=== PATIENT | male | born 1975 | race Caucasian/White ===

== ENCOUNTER 2023-07-01 08:22 | Outpatient (AMB) | payer BC, SELFPAY ==
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
[2023-07-01 08:47] VITALS: BP 130/84; PULSE 68; O2SAT 99; BMI 30.6
== END 2023-07-01 10:02 | disposition home or self-care (01) ==
PROVIDERS: PCP Internal Medicine; Visit Provider Nurse Practitioner Family
DX: G43.009 Migraine without aura, not intractable, without status migrainosus (principal); R06.83 Snoring; R53.83 Other fatigue; G47.9 Sleep disorder, unspecified; G47.26 Circadian rhythm sleep disorder, shift work type
CPT/HCPCS: 99204

== ENCOUNTER → 2023-07-01 08:22 | Outpatient (BNVA) | payer BC, SELFPAY | PROVIDERS: PCP Internal Medicine; Visit Provider Nurse Practitioner Family ==

== ENCOUNTER 2024-01-26 08:17 | Outpatient (AMB) | payer BC, SELFPAY ==
--- OUTSIDE RECORDS SUMMARY | 2024-01-26 08:23 | XMS_ITS | Continuity of Care Document ---
Author Organization [facility] [place] Address [address] [place] [address]- Care Team Providers Care Coater Name Role Phone Destiny LEAD GENERATION MARKETING MANAGERAlcides Primary Care Physician Encounter [facility] Date(s): 12/06/23 - 01/05/24 [facility] [place] [address], [place] [address] Encounter Type: Triage Allergies, Adverse Reactions, Alerts No Known Medication Allergies Immunizations Given and Recorded Vaccine Date Status Refusal Reason influenza virus vaccine, inactivated 11/19/22 Ashu rded influenza virus vaccine, inactivated 11/19/21 Ashu rded influenza virus vaccine, inactivated 10/31/20 Ashu rded influenza virus vaccine, inactivated 10/12/19 Ashu rded influenza virus vaccine, inactivated 11/09/18 Ashu rded influenza virus vaccine, inactivated 11/11/17 Ashu rded influenza virus vaccine, inactivated 12/07/16 Ashu rded influenza virus vaccine, inactivated 12/17/15 Ashu rded influenza virus vaccine, inactivated 01/05/05 Ashu rded influenza virus vaccine, inactivated 12/28/02 Ashu rded influenza virus vaccine, inactivated 11/28/01 Ashu rded influenza virus vaccine, inactivated 01/06/01 Ashu rded influenza virus vaccine, inactivated 01/22/00 Ashu rded influenza virus vaccine, inactivated 11/01/97 Ashu rded SARS-CoV-2 (COVID-19) mRNA-1273 vaccine 04/13/20 R ecorded SARS-CoV-2 (COVID-19) mRNA-1273 vaccine 03/15/20 R ecorded tetanus-diphtheria toxoids (Td) 01/02/18 Recorded tetanus-diphtheria toxoids (Td) 11/01/97 Recorded hepatitis B adult vaccine 11/22/07 Recorded hepatitis B adult vaccine 06/26/07 Recorded hepatitis B adult vaccine 05/26/07 Recorded tetanus/diphtheria/pertussis, acel(Tdap) 05/26/07 Recorded Hepatitis A Adult Vaccine 07/18/98 Recorded Hepatitis A Adult Vaccine 11/08/97 Recorded Measles/Mumps/Rubella Virus Vaccine 12/20/78 Recor ded Medications allopurinol 300 mg oral tablet 1 tablet = 300 mg, By Mouth, Daily, # 30 tablet, 0 Refills, Maintenance, 03/12/15 4:01:13 PM EST, Tablet Start Date: 03/12/15 Status: Ordered Quantity: 30.0 Unit: tablet Repeat number: 1 amLODIPine 5 mg oral tablet 1 tablet = 5 mg, By Mouth, Daily, TAKE 1 TABLET BY MOUTH EVERY DAY, # 90 tablet, 1 Refills, Maintenance, 10/27/23 4:39:00 PM EDT, Tablet, [facility]/pharmacy #[id number], Partial fill upon patient request if the prescription is for a schedule II opioid drug., 163, cm, 07/14/23 11:21:00 EDT, Height, 76.7, kg, 09/10/22 8:00:00 EDT, Dry Weight Start Date: 10/27/23 Stop Date: 03/25/24 Status: Ordered Quantity: 90.0 Unit: tablet Repeat number: 2 azelastine-fluticasone 137 mcg-50 mcg/inh nasal spray USE 1 PUFF BY NASAL ROUTE 2 TIMES DAILY NEEDED (NASAL STUFFINESS). Start Date: 05/03/23 Status: Ordered Repeat number: 1 Golytely - oral powder for reconstitution See Instructions, Per instructions from GI., # 4,000 mL, 0 Refills, Maintenance, 09/09/23 9:34:00 AM EDT, [facility]/pharmacy #[id number], Partial fill upon patient request if the prescription is for a schedule II opioid drug., Per instructions from GI., 163, cm, 09/09/23 8:57:00 EDT, Height, 76.7, kg, 09/10/22 8:00:00 EDT, Dry Weight Start Date: 09/09/23 Status: Ordered Quantity: 4000.0 Unit: mL Repeat number: 1 Indication: Encounter for screening for malignant neoplasm of colon meloxicam 15 mg oral tablet TAKE 1 TABLET BY MOUTH TWICE A DAY Start Date: 05/03/23 Status: Ordered Repeat number: 1 omeprazole 20 mg oral enteric coated capsule 1 capsule = 20 mg, By Mouth, Daily, 30 min before a meal, # 90 capsule, 1 Refills, Maintenance, 10/30/23 2:40:00 PM EDT, [id number], Partial fill upon patient request if the prescription is for a schedule II opioid drug., 163, cm, 09/09/23 8:57:00 EDT, Height, 76.7, kg, 09/10/22 8:00:00 EDT,Dry Weight Start Date: 10/30/23 Stop Date: 04/27/24 Status: Ordered Quantity: 90.0 Unit: capsule Repeat number: 2 Indication: Gastro-esophageal reflux disease without esophagitis semaglutide 0.5 mg/0.5 mL (0.5 mg dose) subcutaneous solution = 0.5 mg, Subcutaneous Injection, Every week, for 4 week(s), in the abdomen, thigh, or upper arm, #2 mL, 1 Refills, Acute 01/31/24 10:58:00 AM EST, 12/06/23 10:58:00 AM EDT, Solution, [id number], Partial fill upon patient request if the prescription is for a schedule II opioid drug., 160, cm, 11/04/23 11:40:00 EDT, Height, 76.7, kg, 09/10/22 8:00:00 EDT, Dry Weight Start Date: 12/06/23 Stop Date: 01/31/24 Status: Ordered Quantity: 2.0 Unit: mL Repeat number: 2 sertraline 50 mg oral tablet TAKE 1/2 TABLET BY MOUTH EVERY DAY FOR 1 WEEK, THEN TAKE 1 TABLET DAILY THEREAFTER. Start Date: 05/03/23 Status: Ordered Repeat number: 1 Problem List Condition Confirmation Course Effective Dates Status Health St atus Informant Obese class I Confirmed Active Social History Social History Type Response Smoking Status Never (less than 100 in lifetime); Interested in cessation: No; Patient wants NRT during admission No;Never; Exposure to Secondhand Smoke: No; Previous treatment: None; Tobacco user in household: No entered on: 05/03/23 Sex Sex Representation Male (finding) Patient Care team information Care Team Personnel Name: Alcides Dixon NP Position: [facility] PCO Associate Professional Member Role: PCP Address: [address] [place] [address] [place] [address]- Telecom: Care Team Related Persons Name: YOLANDA THOMAS Insurance Providers Guarantor name: YEISON AMARISPADILLA [facility] Plan Information #: 1 Payer: [employer] Member Number: NA Policy Number: NA Group Number: NA
--- OUTSIDE RECORDS SUMMARY | 2024-01-26 08:23 | XMS_ITS | Continuity of Care Document ---
Author Name [facility] Organization [facility] Care Team Providers Care Gas Inspector Name Role Phone [facility] Unavailable Unavailable Problems Combined list of problems from Department of Defense and Veterans Affairs facilities. It does not include entries that were removed or entered in error. Problem Status Onset Date Problem Type Date of Resolution Comments Source assess patient condition work-related occupational disease Inactive Condition [facility] primary insomnia Active Condition [facility] dermatitis Active Condition [facility] bursitis prepatellar Active Condition [facility] Diagnosis: ICD-10-CM Z46.0 Encounter for fit/adjst of spectacles and contact lenses Active Diagnosis [facility] Diagnosis: ICD-10-CM Z01.00 Encounter for exam of eyes and vision w/o abnormal findings Active Diagnosis [facility] Immunizations Combined list of available immunizations from the Department of Defense and Veterans Affairs facilities. Immunization Series Date Given Administered By Site Reaction Lot Number CVX Code Drug Overseer Kosher Kitchen Status Comments Source influenza, seasonal, injectable 2021 [id number] Seqirus complet ed influenza , seasonal, injectabl e 11/19/21 Given Ambulat ory Pharmac y influenza, seasonal, injectable 2020 [id number] Seqirus complet ed influenza , seasonal, injectabl e 10/31/20 Given Ambulat ory Pharmac y COVID Vaccine Moderna 2020 [id number] complet ed COVID Vaccine Moderna 04/13/20 Given Ambulat ory Pharmac y COVID Vaccine Moderna 2020 [id number] complet ed COVID Vaccine Moderna 03/15/20 Given Ambulat ory Pharmac y influenza, seasonal, injectable 2019 [id number] complet ed influenza , seasonal, injectabl e 10/12/19 Given Ambulat ory Pharmac y influenza, seasonal, injectable 2018 [id number] 141 sanofi pasteur complet ed influenza , seasonal, injectabl e 11/09/18 Given Ambulat ory Pharmac y Td (adult) 2017 [id number] 138 complet ed Td (adult) 01/02/18 Given Ambulat ory Pharmac y influenza, seasonal, injectable-pf 2017 [id number] 140 Seqirus complet ed influenza , seasonal, injectabl e-pf 11/11/17 Given Ambulat ory Pharmac y influenza, seasonal, injectable-pf 2016 [id number] Seqirus complet ed influenza , seasonal, injectabl e-pf 12/07/16 Given Ambulat ory Pharmac y influenza, seasonal, injectable 2015 [id number] 141 GlaxoSmithKli ne complet ed influenza , seasonal, injectabl e 12/17/15 Given Ambulat ory Pharmac y influenza, seasonal, injectable-pf 2014 [id number] CSL Behring complet ed influenza , seasonal, injectabl e-pf 11/10/14 Given Ambulat ory Pharmac y hepatitis B adult vaccine 2014 [id number] GlaxoSmithKli ne complet ed hepatitis B adult vaccine 05/19/14 Given Ambulat ory Pharmac y influenza, seasonal, injectable-pf 2013 [id number] CSL Behring complet ed influenza , seasonal, injectabl e-pf 11/09/13 Given Ambulat ory Pharmac y hepatitis B adult vaccine 2013 [id number] Merck & Company Inc complet ed hepatitis B adult vaccine 11/09/13 Given Ambulat ory Pharmac y hepatitis B adult vaccine 2013 [id number] Merck & Company Inc complet ed hepatitis B adult vaccine 09/15/13 Given Ambulat ory Pharmac y influenza, seasonal, injectable-pf 2012 [id number] 140 Novartis Pharmaceutica complet ed influenza , seasonal, injectabl e-pf 11/29/12 Given Ambulat ory Pharmac y influenza, seasonal, injectable-pf 2011 [id number] 140 CSL Behring complet ed influenza , seasonal, injectabl e-pf 11/21/11 Given Ambulat ory Pharmac y influenza virus vaccine, live 2010 [id number] 111 AeroDynEnergy Inc comple t ed influenza virus vaccine, live 12/13/10 Given Ambulat ory Pharmac y influenza virus vaccine, live 2009 [id number] 111 [employer] comple t ed influenza virus vaccine, live 12/13/09 Given Ambulat ory Pharmac y Novel influenza-H1N 1-09, injectable 2009 [id number] 127 Novartis Pharmaceutica ls complet ed Novel influenza -R0T2-53, injectabl e 02/15/09 Given Ambulat ory Pharmac y influenza virus vaccine, live 2008 [id number] 111 [employer]yn[employer] Inc comple t ed influenza virus vaccine, live 11/10/08 Given Ambulat ory Pharmac y tetanus, diphtheria, acellular pertu is 2007 [id number] 115 sanofi pasteur complet ed tetanus, diphtheri a, acellular pertussis 12/10/07 Given Ambulat ory Pharmac y influenza virus vaccine,split 2007 [id number] 15 GlaxoSmithKli ne complet ed influenza virus vaccine,s plit 12/10/07 Given Ambulat ory Pharmac y influenza virus vaccine,split 2006 [id number] 15 GlaxoSmithKli ne complet ed influenza virus vaccine,s plit 12/10/06 Given Ambulat ory Pharmac y influenza virus vaccine,split 2006 [id number] 15 Unknown complet ed influenza virus vaccine,s plit 04/10/06 Given Ambulat ory Pharmac y influenza virus vaccine,split 2004 [id number] 15 sanofi pasteur complet ed influenza virus vaccine,s plit 01/05/05 Given Ambulat ory Pharmac y tuberculin purified protein derivative 2003 [id number] 96 Kleberg Adonay complet ed tuberculi n purified protein derivativ e 02/27/03 Given Ambulat ory Pharmac y tuberculin purified protein derivative 2003 [id number] 96 Kleberg Adonay complet ed tuberculi n purified protein derivativ e 02/13/03 Given Ambulat ory Pharmac y influenza virus vaccine, whole virus 2002 [id number] 16 Novartis Pharmaceutica ls complet ed influenza virus vaccine, whole virus 12/28/02 Given Ambulat ory Pharmac y typhoid vaccine, parenteral 2002 [id number] sanofi pasteur complet ed typhoid vaccine, parentera l 07/10/02 Given Ambulat ory Pharmac y tuberculin purified protein derivative 2002 [id number] 96 sanofi pasteur complet ed tuberculi n purified protein derivativ e 02/14/02 Given Ambulat ory Pharmac y influenza virus vaccine, whole virus 2001 [id number] 16 sanofi pasteur complet ed influenza virus vaccine, whole virus 11/28/01 Given Ambulat ory Pharmac y influenza virus vaccine, whole virus 2000 [id number] 16 [facility] complet ed influenza virus vaccine, whole virus 01/06/01 Given Ambulat ory Pharmac y tuberculin purified protein derivative 2000 [id number] 96 sanofi pasteur complet ed tuberculi n purified protein derivativ e 01/06/01 Given Ambulat ory Pharmac y anthrax vaccine 2000 [id number] 24 [employer] complet ed anthrax vaccine 07/01/00 Given Ambulat ory Pharmac y anthrax vaccine 2000 [id number] 24 [employer] complet ed anthrax vaccine 06/17/00 Given Ambulat ory Pharmac y anthrax vaccine 2000 24 [employer] complet ed anthrax vaccine 06/03/00 Given Ambulat ory Pharmac y typhoid vaccine, parenteral 2000 [id number] 41 [employer] complet ed typhoid vaccine, parentera l 05/26/00 Given Ambulat ory Pharmac y tuberculin purified protein derivative 2000 [id number] 96 [employer] complet ed tuberculi n purified protein derivativ e 05/24/00 Given Ambulat ory Pharmac y tuberculin purified protein derivative 2000 [id number] 96 [employer] complet ed tuberculi n purified protein derivativ e 05/17/00 Given Ambulat ory Pharmac y influenza virus vaccine, whole virus 1999 [id number] 16 [facility] complet ed influenza virus vaccine, whole virus 01/22/00 Given Ambulat ory Pharmac y influenza virus vaccine, whole virus 1998 16 complet ed influenza virus vaccine, whole virus 12/25/98 Given Ambulat ory Pharmac y typhoid vaccine, parenteral 1998 [id number] 41 [employer] complet ed typhoid vaccine, parentera l 07/18/98 Given Ambulat ory Pharmac y hepatitis A adult vaccine 1998 [id number] 52 Merck & Company Inc complet ed hepatitis A adult vaccine 07/18/98 Given Ambulat ory Pharmac y yellow fever vaccine 1998 [id number] 37 [employer] complet ed yellow fever vaccine 07/18/98 Given Ambulat ory Pharmac y poliovirus vaccine, live, oral 1997 [id number] 02 [employer] complet ed polioviru s vaccine, live, oral 11/08/97 Given Ambulat ory Pharmac y hepatitis A adult vaccine 1997 [id number] 52 [employer] complet ed hepatitis A adult vaccine 11/08/97 Given Ambulat ory Pharmac y measles and rubella virus vaccine 1997 04 complet ed measles and rubella virus vaccine 11/08/97 Given Ambulat ory Pharmac y influenza virus vaccine, whole virus 19975067 [id number] 16 [employer] complet ed influenza virus vaccine, whole virus 11/01/97 Given Ambulat ory Pharmac y tetanus-dipht h toxoids (Td) adult/adol [id number] 09 [facility] complet ed tetanus-d iphth toxoids (Td) adult/ado l 11/01/97 Given Ambulat ory Pharmac y meningococcal polysaccharid e (MPSV4) [id number] 32 [facility] complet ed meningoco ccal polysacch aride (MPSV4) 11/01/97 Given Ambulat ory Pharmac y Results Combined list of recent chemistry, hematology and other laboratory results from Department of Defense and Veterans Affairs, ranging from 15 months to all on record, depending upon the facility. Order Name Results Value Reference Range Date Interpretation Specimen Comments Source Infectio us Disease HIV-1/O/2 Non-Reac tive 1 (04/16/23 11:11 AM) 04/15 N Interpretiv e Data: INTERPRETAT ION: This method is a screening procedure for the detection of HIV p24 Antigen and Antibodies to HIV-1, including Group O, and/or HIV-2. NON-REACTIV E: HIV-1 antigen and HIV-1 / HIV-2 antibodies were not detected. No laboratory evidence of HIV infection. A negative test result does not exclude the possibility of exposure to or infection with HIV. HIV antibodies and/or p24 antigen may be undetectabl e in some stages of the infection and in some clinical conditions. If acute HIV infection is suspected, consider submitting another specimen to a reference laboratory for HIV-1 RNA. SCREEN REACTIVE - CONFIRMATIO N TO FOLLOW: Possible presence of HIV-1antibo dies, HIV-2 antibodies and/or HIV-1 p24 antigen. Specimen will reflex to the confirmatio n testing that fulfills the Center for Disease Control and Prevention' s HIV diagnostic algorithm. Refer to [facility] Lab Guide for additional information : [email or web address]/ [email or web address] x Testing performed by [facility] Aristides garcia Sendouts Repository Sample Received (04/16/23 11:11 AM) 04/15 N [facility] Vital Signs Combined list of inpatient and outpatient Vital Signs from Department of [facility] and [facility], ranging from 12 months to all on record, depending upon the facility. Vital Sign Value Date Comments Source No data available for this section Ambulatory Pharmacy Encounters Combined list of: 1) Encounters from Department of [facility] facilities going back up to thelast 18 months. 2) Encounters from the Department of [facility] facilities going back up to 280 months. Location Location Details Encounter Type Encounter Number Reason For Visit Attending Provider ADM Date DC Date Status Disposition Source [address] [place] [address] OUTPATIENT [id number] RAMU VAZQUEZ 05/05 Released w/o Limitations [address] [place] [address] OUTPATIENT [id number] MELECIO JEREZ 08/18 Released w/o Limitations [address] [place] [address] OUTPATIENT [id number] MELECIO JEREZ 09/01 Released w/o Limitations [address] [place] [address] EYE EXAM NEW PATIENT [id number] Diagnos is: ICD-10- CM Z01.00 Encount er for exam of eyes and vision w/o abnorma l finding s
[place] MADSEN A 12/03 [facility] [place] [facility] Outpatient Encounter [id number] 12/06 [place] [facility] [place] [facility] [facility] FIT SPECTACLES MONOFOCAL [id number] Diagnos is: ICD-10- CM Z46.0 Encount er for fit/adj st of spectac les and contact lenses< br/> WHITEBOUBACAR 12/06 [facility] [id number] [facility] Clinic [id number] AGUSTINA RDZ 04/15 Discharge Disposition: Home or Self Care [id number] [facility] [id number] [facility] Outpatient [id number] AGUSTINA RDZ 04/15 Discharge Disposition: Home or Self Care 8344R-[id number] [facility] Procedures Combined list of: 1) Procedures from Department of Veterans Affairs facilities [facility], not all [place] non-surgical procedures are included; 2) All procedures from the Department of Defense facilities. Procedure Procedure Type Code Date Perfomer Comments Sourc e No data available for this section [facility] SCREENING TEST OF VISUAL ACUITY, QUANTITATIVE, BILATERAL 07/13/2004 [facility] Social History Combined list of available smoking, tobacco, and other social history from Department of Defense and Veterans Affairs facilities. Social History Type Response Date Comment Sourc e This section is an empty social history section. [facility] Assessment and Plan Combined list of future care activities from Department of Defense and Veterans Affairs facilities (e.g., assessment and plan notes, appointments, orders, and referrals). Additional future care activities may be listed in the Plan of Care section. Result Assessment and Plan Date Source Assessment and Plan Extracted from:Title : predoc/vitals Author: AMANUEL MENA Date: 04/16/23 ?Vitals: Blood Pressure:???136/86 Heart Rate:80 Height:64 Weight:170 BMI: Medications: ?Allopurinol 300mg, Meloxicam 15mg, omeprazole 20mg, OTC sleep aid, amlodipine Chronic Problems: ?Kidney stones Spinal stinosis Chronic neck pain HTN SF 507: _ Comments: 01/26/2024 Ambulatory Pharmacy Functional Status Combined list of recent functional and cognitive assessments recorded at Department of Defense and Veterans Affairs ([place] Functional [place] Measurement (FIM) Scale: 1 = Total Assistance (Subject = 0% +), 2 = Maximal Assistance (Subject = 25% +), 3 = Moderate Assistance (Subject = 50% +), 4 = Minimal Assistance (Subject = 75% +), 5 = Supervision, 6 = Modified [place] (Device), 7 = Complete [place] (Timely, Safely). Assessment Date/Time Source Assessment Type Assessment Skill Assessment Score Assessment Details No data available for this section
--- NOTE | 2024-01-26 08:51 | A.OFFVIS_ITS ---
Vital Signs 01/26/24 08:50 01/26/24 08:52 Height 5 ft 4 in Weight 175 lb BMI 30.0 30.0 Intake Visit Reasons: 7 Month F/U Intake Note: Patient presents for follow up. Allergies No Known Allergies Allergy (Verified 01/26/24 08:51) Medication List - Last Reconciled 01/26/24 by MARY Cabezas allopurinol 300 mg PO DAILY amlodipine 5 mg PO DAILY magnesium oxide 400 mg PO BEDTIME 30 days meloxicam 15 mg PO DAILY omeprazole 20 mg PO DAILY riboflavin (vitamin B2) 400 mg PO DAILY 30 days sumatriptan succinate 50 - 100 mg orally at onset of headache, may repeat in 2 hrs PRN; max 2 tabs per day or 4 tabs/week (may take with Tylenol) 30 days HPI Comments Details: Right handed 47-yr-old male presents for follow-up of migraine. Patient denies any significant interval medical changes. Pt continues to have 1-2 migraine days per week, may linger into the next day. He has a couple of severe debilitating migraines per month- sometimes he wakes up with these severe attacks. He started Sumatriptan- initially had mild tightening sensation in his chest/face, however since it has worked well and has been well-tolerated well. Started B2 and Mag. HST is scheduled in Feb. He does continue to work overnight babysitter. Baseline migraine headache characteristics: Prodrome symptoms: None Aura: Unsure Pain intensity: Starts mild then becomes severe Location, quality, characteristics: Usually Right temporal, or occipital, as headache peaks becomes holocranial throbbing pain. Associated symptoms? Blurry vision, halos, photophobia, phonophobia, at times osmophobia, nausea, rarely vomiting, dizziness, yawning, difficulty concent rating, inactivity intolerance. Postdrome: Dulls out Triggers: Unaware of any specific triggers Time of day: No specific time of day PFSH Surgical History H/O cervical spine surgery Hx laparoscopic cholecystectomy Family History Father HTN (hypertension) Mother HTN (hypertension) Sister HTN (hypertension) Social History Alcohol intake: never Patient Tobacco Use Status: Never used Tobacco Physical Exam Vital Signs: BMI result Body Mass Index 30.0 Const Orientation/consciousness: patient oriented x3 HEENT Head: Yes normocephalic Resp Effort & Inspection: normal respiratory effort and able to speak in complete sentences Neuro General: patient oriented x3 Cranial nerves: Yes CN's II-XII intact bilaterally Cognition (Neuro): normal cognition Gait exam (Neuro): Normal gait present Motor exam (neuro): 5/5 motor strength present throughout Psych Appearance: grossly normal Mental Status: mental status grossly normal Speech and movement: Normal speech and movement present Affect: normal affect Assessment & Plan Assessment & Plan (1) Migraine without aura: Code(s): G43.009 - Migraine without aura, not intractable, without status migrainosus Category: Medical (2) Snoring: Code(s): R06.83 - Snoring Category: Medical (3) Fatigue: Code(s): R53.83 - Other fatigue Category: Medical (4) Sleep difficulties: Code(s): G47.9 - Sleep disorder, unspecified Category: Medical (5) Shift work sleep disorder: Code(s): G47.26 - Circadian rhythm sleep disorder, shift work type Category: Medical Plan HST as scheduled to assess for sleep apnea. For overall headache management: Optimize good self-care, including but not limited to maintaining a healthy diet, adequate fluid intake, adequate sleep, and engaging in regular physical activity. For headache triggers: Track headaches, especially after any treatment regimen changes. Migraine [employer]di[employer]TIX is one of many headache tracking apps. For light sensitivity tips: Patient may try blue light filtering glasses, green glasses, green light therapy. For sleep:: Continue to optimize sleep while working shift-work- using sunglasses and cap upon leaving work, using Melatonin. For acute headache treatment: Discussed importance of taking acute medications at the first sign of headache, however stressed importance of avoiding acute medication overuse (especially with combined headache medications). Continue Sumatriptan 100mg tab, 1/2 - 1 tab (50-100mg) at onset of headache, may repeat in 2 hours. Max of 2 tabs (200mg) per 24 hours. May adjunct with OTC Tylenol 650-1000mg q 4-6 hours prn. Trial sumatriptan 6 mg subQ injection at onset of severe wakening migraine a/w nausea, may repeat x1 after 1 hour. Max 12 mg per day. Reviewed patient may have quicker and better onset of action with subcu injectable form of sumatriptan, however he may feel side effects more prominently. Patient to notify us with any untoward effects. Previous acute migraine medication trials: None Acute migraine medication contraindications: None at this time For headache prevention medication: Preventative medications should be taken routinely as prescribed for best effect, it may take several weeks for full effect to take effect. Continue Riboflavin 400mg qam Continue Magnesium 400mg qhs Start nortriptyline 10 mg at bedtime (opted for nortriptyline versus amitriptyline, as nortriptyline has less sedating effect, as patient has fragmented sleep schedule due to overnight shift work). Previous migraine prevention medication trials: None Migraine prevention medication contraindications: Topiramate due to age/0 kidney stones. Future considerations: non-pharmacological interventions, such as Cefaly, Nerivio, or GammaCore neuromodulation devices- these could be requested through the [facility].. Will follow-up upon review of above and patient to follow-up in clinic in 6 months or sooner prn. Medications: New nortriptyline 10 mg PO BEDTIME 30 caps 3RF 30 days sumatriptan succinate 6 mg (0.5 mL) subcut ONCE PRN 4 mL 6RF severe migraine 30 days MDD 12 Refilled sumatriptan succinate 50 - 100 mg orally at onset of headache, may repeat in 2 hrs PRN; max 2 tabs per day or 4 tabs/week (may take with Tylenol) 12 tabs 6RF migraine headache 30 days magnesium oxide may hold for loose stools 400 mg PO BEDTIME 30 tabs 6RF 30 days Coding Level of Care Code Est Pt Level 4 (84595) Diagnoses Migraine without aura G43.009 Snoring R06.83 Fatigue R53.83 Sleep difficulties G47.9 Shift work sleep disorder G47.26
== END 2024-01-26 09:31 | disposition home or self-care (01) ==
PROVIDERS: PCP Internal Medicine; Visit Provider Nurse Practitioner Family
DX: G43.009 Migraine without aura, not intractable, without status migrainosus (principal); R06.83 Snoring; R53.83 Other fatigue; G47.9 Sleep disorder, unspecified; G47.26 Circadian rhythm sleep disorder, shift work type
CPT/HCPCS: 99214

== ENCOUNTER → 2024-01-26 08:17 | Outpatient (BNVA) | payer BC, SELFPAY | PROVIDERS: PCP Internal Medicine; Visit Provider Nurse Practitioner Family ==

== ENCOUNTER → 2024-03-08 10:10 | Outpatient (REF) | payer BC, SELFPAY ==
--- OUTSIDE RECORDS SUMMARY | 2024-03-08 13:26 | XMS_ITS | Encounter Summary ---
Author Organization [facility] Address [address] [place] [address] Care Team Providers Care Fuel Cell Test Engineer Name Role Phone Alon Sharma MD Primary Care Provider Unavail able John Paul Rdz MD Primary Care Provider [phone] Reason for Visit * Reason Comments E-prescribe Rx Request Encounter Details Date Type Department Care Team Description 09/19/2017 Refill Physiatry - [place] [address] [place] [id number] Tam Brower DO E-prescribe Rx Request Social History Tobacco Use Types Packs/Day Years Used Date Smoking Tobacco: Never Smokeless Tobacco: Never Alcohol Use Standard Drinks/Week Comments No 0 (1 standard drink = 0.6 oz pur e alcohol) Sex Assigned at Date Recorded Not on file Job Start Date Occupation Industry Not on file Not on file Not on file documented as of this encounter Miscellaneous Notes * Telephone Encounter - Edel Murillo M.A. - 09/19/2017 9:40 AM EDT Last ov 08/05/17 Last refill 07/25/17 Next ov not scheduled documented in this encounter Plan of Treatment Not on file documented as of this encounter Visit Diagnoses Not on filedocumented in this encounter Care Teams Fuel Cell Test Engineer Relationship Specialty Start Date End Date Alon Sharma MD PCP - General 11/22/08 04/09/21 John Paul Rdz MD [address] [place] [address] [id number] PCP - General Internal Medicine 04/10/21 documented as of this encounter
--- OUTSIDE RECORDS SUMMARY | 2024-03-08 13:26 | XMS_ITS | Encounter Summary ---
Author Organization [facility] Address [address] [place] [address] Care Team Providers Care Bone Grinder Name Role Phone Alon Sharma MD Primary Care Provider Unavail able John Paul Rdz MD Primary Care Provider [phone] Encounter Details Date Type Department Care Team Description 04/23/2020 Old Medical Records Medical Records [address] [place] [address] Keith Cobb PA-C Social History Tobacco Use Types Packs/Day Years Used Date Smoking Tobacco: Never Smokeless Tobacco: Never Alcohol Use Standard Drinks/Week Comments No 0 (1 standard drink = 0.6 oz pur e alcohol) Sex Assigned at Date Recorded Not on file Job Start Date Occupation Industry Not on file Not on file Not on file documented as of this encounter Plan of Treatment Not on file documented as of this encounter Visit Diagnoses Not on filedocumented in this encounter Care Teams Bone Grinder Relationship Specialty Start Date End Date Alon Sharma MD PCP - General 11/22/08 04/09/21 John Paul Rdz MD [address] [place] [id number] PCP - General Internal Medicine 04/10/21 documented as of this encounter
--- OUTSIDE RECORDS SUMMARY | 2024-03-08 13:26 | XMS_ITS | Encounter Summary ---
Author Organization [facility] Address [address] [place] [address] Care Team Providers Care Screw Machine Tool Setter Name Role Phone Alon Sharma MD Primary Care Provider Unavail able John Paul Rdz MD Primary Care Provider [phone] Encounter Details Date Type Department Care Team Description 06/12/2019 Mill Helper Report Medical Records [address] [place] [id number] Divya Amaya, Social History Tobacco Use Types Packs/Day Years [...] on filedocumented in this encounter Care Teams Screw Machine Tool Setter Relationship Specialty Start Date End Date Alon Sharma MD PCP - General 11/22/08 04/09/21 John Paul Rdz MD [address] [place] [id number] PCP - General Internal Medicine 04/10/21 documented as of this encounter
--- OUTSIDE RECORDS SUMMARY | 2024-03-08 13:26 | XMS_ITS | Encounter Summary ---
Author Organization [facility] Address [address] [place] [address] Care Team Providers Care State Pilot Name Role Phone Alon Sharma MD Primary Care Provider Unavail able John Paul Rdz MD Primary Care Provider [phone] Encounter Details Date Type Department Care Team Description 07/31/2019 Homebirth Midwife Report Medical Records [address] [place] [address] Alcides Morales MD Social History Tobacco Use Types Packs/Day Years [...] on filedocumented in this encounter Care Teams State Pilot Relationship Specialty Start Date End Date Alon Sharma MD PCP - General 11/22/08 04/09/21 John Paul Rdz MD [address] [place] [address] PCP - General Internal Medicine 04/10/21 documented as of this encounter
--- OUTSIDE RECORDS SUMMARY | 2024-03-08 13:26 | XMS_ITS | Encounter Summary ---
Author Organization [facility] Address [address] [place] [address] Care Team Providers Care Stretch Machine Operator Name Role Phone John Paul Rdz MD Primary Care Provider [phone] Reason for Visit * Reason Onset Date Comments TEST RESULTS 02/02/2023 Lmtcb on , ple ase transfer call to ext: [phone] Encounter Details Date Type Department Care Team Description 02/02/2023 Telephone Adult Medicine [address] [address] Torsten Yang NP [address] [place] [address] TEST RESULTS (Lmtcb on , please transfer call to ext: [phone] ) Social History Tobacco Use Types Packs/Day Years [...] on filedocumented in this encounter Care Teams Stretch Machine Operator Relationship Specialty Start Date End Date John Paul Rdz MD [address] [place] [address] PCP - General Internal Medicine 04/10/21 documented as of this encounter
--- OUTSIDE RECORDS SUMMARY | 2024-03-08 13:26 | XMS_ITS | Continuity of Care Document ---
Author Organization [facility] [place] Address [address] [place] [address]- Care Team Providers Care Poultry Farm Supervisor Name Role Phone Destiny ENVIRONMENTAL GEOLOGISTAlcides Primary Care Physician ( [phone] Encounter [facility] Date(s): 02/03/24 - 03/04/24 [facility] [place] [address] [place], [place] [address] Encounter Type: Triage Allergies, Adverse [...] EVERY DAY, # 90 tablet, 1 Refills, Hard Stop 03/25/24 4:39:00 PM EST, 10/27/23 4:39:00 PM EDT, Tablet, [facility]/pharmacy #[id number], Partial fill upon patient request if the prescription is for a schedule II opioid drug., 163, cm, 07/14/23 11:21:00 EDT, Height, 76.7, kg, 09/10/22 8:00:00 EDT, Dry Weight Start Date: 10/27/23 Stop Date: 03/25/24 Status: Ordered Quantity: 90.0 Unit: tablet Repeat number: 2 amLODIPine 5 mg oral tablet 1 tablet = 5 mg, By Mouth, Daily, TAKE 1 TABLET BY MOUTH EVERY DAY, # 90 tablet, 1 Refills, Maintenance, 03/25/24 4:39:00 PM EST, Tablet, [facility]/pharmacy #[id number], Partial fill upon patient request if the prescription is for a schedule II opioid drug., 160, cm, 01/13/24 11:05:00 EST, Height, 76.7, kg, 09/10/22 8:00:00 EDT, Dry Weight Start Date: 03/25/24 Status: Ordered Quantity: 90.0 Unit: [...] upper arm, #2 mL, 1 Refills, Acute 03/30/24 5:35:00 PM EST, 02/03/24 5:35:00 PM EST, Solution, [facility]acy [id number], Partial fill upon patient request if the prescription is for a schedule II opioid drug., 160, cm,01/13/24 11:05:00 EST, Height, 76.7, kg, 09/10/22 8:00:00 EDT, Dry Weight Start Date: 02/03/24 Stop Date: 03/30/24 Status: Ordered Quantity: 2.0 Unit: mL Repeat [...] Team Personnel Name: Alcides Dixon NP Position: [facility] Associate Professional Member Role: PCP Address: [address] [place] [address] Primary Care [place], [place] [address] Telecom: Care Team Related Persons Name: YOLANDA THOMAS Insurance Providers Guarantor name: YEISON THOMAS Health Plan Information #: 1 Payer: [employer] [employer] Member Number: NA Policy Number: NA Group Number: NA
--- OUTSIDE RECORDS SUMMARY | 2024-03-08 13:26 | XMS_ITS | Encounter Summary ---
Author Organization [facility] Address [address] [place] [address] Care Team Providers Care Health And Fitness Instructor Name Role Phone Alon Sharma MD Primary Care Provider Unavail able John Paul Rdz MD Primary Care Provider [phone] Encounter Details Date Type Department Care Team Description 07/28/2018 Pt. Non Urgent Medical Question Medicine/Pediatrics - [address] [phone] Alon Sharma MD Social History Tobacco Use Types Packs/Day Years Used Date Smoking Tobacco: Never Smokeless Tobacco: Never Alcohol Use Standard Drinks/Week Comments No 0 (1 standard drink = 0.6 oz pur e alcohol) Sex Assigned at Date Recorded Not on file Job Start Date Occupation Industry Not on file Not on file Not on file documented as of this encounter Progress Notes * Deyanira Melton L.P.N. - 07/31/2018 9:50 AM EDTFrom: Kolby Tolliver To: Alon Sharma MD Sent: 07/28/2018 7:11 PM EDT Subject: Allopurinol I have an appointment scheduled for Tuesday, but [facility] is holding [facility] (I have only two doses remaining); can the RX be allowed for a 30 day refill for now and then back to 90 day after the appointment? documented in this encounter Plan of Treatment Not on file documented as of this encounter Visit Diagnoses Not on filedocumented in this encounter Care Teams Health And Fitness Instructor Relationship Specialty Start Date End Date Alon Sharma MD PCP - General 11/22/08 04/09/21 John Paul Rdz MD [address] [place] [address] PCP - General Internal Medicine 04/10/21 documented as of this encounter
--- OUTSIDE RECORDS SUMMARY | 2024-03-08 13:26 | XMS_ITS | Encounter Summary ---
Author Organization [facility] Address [address] [place] [address] Care Team Providers Care Operations Director Name Role Phone Alon Sharma MD Primary Care Provider Unavail able John Paul Rdz MD Primary Care Provider [phone] Encounter Details Date Type Department Care Team Description 06/14/2017 Pt. Non Urgent Medic al Question Physiatry - [address] [address] Tam Brower DO Social History Tobacco Use Types Packs/Day Years Used Date Smoking Tobacco: Never Smokeless Tobacco: Never Alcohol Use Standard Drinks/Week Comments No 0 (1 standard drink = 0.6 oz pur e alcohol) Sex Assigned at Date Recorded Not on file Job Start Date Occupation Industry Not on file Not on file Not on file documented as of this encounter Progress Notes * Edel Murillo M.A. - 06/15/2017 8:10 AM EDTFrom: Kolby Tolliver To: Tam Brower DO Sent: 06/14/2017 6:41 PM EDT Subject: Concerns Adrián Brower & team. I have an upcoming appointment to see you on July 01 but I wanted to get in touch to communicate a few concerns prior to that. First, the neck pain we have treated in the past is worsening. At this point I cannot turn my head [id number] without stiffness and some pain.Second, and worst even, is that the pain is traveling into my left shoulder/tricep area; this pain is elevated when I attempt to sleep as it is so uncomfortable I am dependent upon sleep aids to fall asleep. I have tried many remedies from OTC pain relief, to new pillows, to adding a pillow under my arm, to trying to sleep on my back--all without relief. Lastly, the lower back pain is causing a sharp pain that extends into my right thigh. This issue is most notable when sitting, e.g. when in avehicle I can only remain comfortable for a short period before shifting over and over for a minuteof relief. I don't mean to whine, but I have tried my best to stretch, exercise, use the traction for my neck, and use my inversion table for my back. 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 Hopefully this message finds you all in better condition!! And thank you for your time. documented in this encounter Plan of Treatment Not on file documented as of this encounter Visit Diagnoses Not on filedocumented in this encounter Care Teams Operations Director Relationship Specialty Start Date End Date Alon Sharma MD PCP - General 11/22/08 04/09/21 John Paul Rdz MD [address] [place] [address] PCP - General Internal Medicine 04/10/21 documented as of this encounter
--- OUTSIDE RECORDS SUMMARY | 2024-03-08 13:26 | XMS_ITS | Continuity of Care Document ---
Author Organization [facility] [place] Address [address] [place] [address]- Care Team Providers Care Customer Service Representative Teller Name Role Phone Destiny INTEGRATION ASSISTANTAlcides Primary Care Physician Encounter [facility] Date(s): 01/13/24 - 02/12/24 [facility] [place] [address] [place], [place] [address] Encounter Type: Triage Allergies, Adverse Reactions, [...] Refills, Maintenance, 10/27/23 4:39:00 PM EDT, Tablet, [facility]/pharmacy #[id number], Partial fill upon patient request if [...] Care team information Care Team Personnel Name: Destiny MALONEY, Alcides Parker Position: [facility]O Associate Professional Member Role: PCP Address: [address] [place] [address] [place] [address]- Telecom: Care Team Related Persons Name: YOLANDA THOMAS Insurance Providers Guarantor name: YEISON [facility] Plan Information #: 1 Payer: [employer] Member Number: NA Policy Number: NA Group Number: NA
--- OUTSIDE RECORDS SUMMARY | 2024-03-08 13:26 | XMS_ITS | Encounter Summary ---
Author Organization [facility] Address [address] [place] [address] Care Team Providers Care Sales Correspondence Clerk Name Role Phone Alon Sharma MD Primary Care Provider Unavail able John Paul Rdz MD Primary Care Provider [phone] Reason for Visit * Reason Onset Date Comments other 07/24/2018 Encounter Details Date Type Department Care Team Description 07/24/2018 Pt. Non Urgent Medical Question Medicine/Pediatrics - [address] [phone] Alon Sharma MD Social History Tobacco Use [...] as of this encounter Progress Notes * Astrid Nelson L.P.NPrem - 07/25/2018 7:32 AM EDTFrom: Kolby Tolliver To: Alon Sharma MD Sent: 07/24/2018 8:19 PM EDT Subject: Medical Update Just sending you guys an update; I had the procedure to remove kidney stones from my right side (left was accomplished in Dec 25 I believe). All seems to be well. documented in this encounter Plan of Treatment Not on file documented as of this encounter Visit Diagnoses Not on filedocumented in this encounter Care Teams Sales Correspondence Clerk Relationship Specialty Start Date End Date Alon Sharma MD PCP - General 11/22/08 04/09/21 John Paul Rdz MD [address] [place] [address] PCP - General Internal Medicine 04/10/21 documented as of this encounter
--- OUTSIDE RECORDS SUMMARY | 2024-03-08 13:26 | XMS_ITS | Encounter Summary ---
Author Organization [facility] Address [address] [place] [address] Care Team Providers Care Amusement Ride Operator Name Role Phone Alon Sharma MD Primary Care Provider Unavail able John Paul Rdz MD Primary Care Provider [phone] Encounter Details Date Type Department Care Team Description 02/22/2020 Drier Unloader Report Medical Records [address] [place] [address] Keith Cobb PA-C Social History Tobacco Use [...] on filedocumented in this encounter Care Teams Amusement Ride Operator Relationship Specialty Start Date End Date Alon Sharma MD PCP - General 11/22/08 04/09/21 John Paul Rdz MD [address] [place] [address] PCP - General Internal Medicine 04/10/21 documented as of this encounter
--- OUTSIDE RECORDS SUMMARY | 2024-03-08 13:26 | XMS_ITS | Encounter Summary ---
Author Organization [facility] Address [address] [place] [address] Care Team Providers Care Counseling Specialist Name Role Phone John Paul Rdz MD Primary Care Provider [phone] Encounter Details Date Type Department Care Team Description 07/01/2023 Cage Shift Manager Report Medical Records [address] [place] [address] Mila Herron Social History Tobacco Use Types Packs/Day Years [...] on filedocumented in this encounter Care Teams Counseling Specialist Relationship Specialty Start Date End Date Joh nPaul Rdz MD [address] [place] [address] PCP - General Internal Medicine 04/10/21 documented as of this encounter
--- OUTSIDE RECORDS SUMMARY | 2024-03-08 13:26 | XMS_ITS | Encounter Summary ---
Author Organization [facility] Address [address] [place] [address] Care Team Providers Care Clinical Research Specialist Name Role Phone John Paul Rdz MD Primary Care Provider [phone] Reason for Visit * Reason Comments E-prescribe Rx Request Encounter Details Date Type Department Care Team Description 11/17/2023 Refill Medicine/Pediatrics - [address] [phone] John Paul Rdz MD [address] [place] [address] E-prescribe Rx Request Social History Tobacco Use [...] encounter Miscellaneous Notes * Telephone Encounter - Nubia Laura M.A. - 11/18/2023 1:32 PM EDT LMOM for call back. [facility] Med/Peds x [phone] No blind transfers. BSR: WHEN PT CALLS BACK PLEASE SCHEDULE A FOLLOW UP APPT WITH GEORGINA THANK YOU * Telephone Encounter - Ruby Steinberg - 11/17/2023 4:00 PM EDT Left message to call back. Please put to [phone]*or re-message to med/ped * Telephone Encounter - Kendrick Azul PA-C - 11/17/2023 3:38 PM EDT Needs to schedule med review * Telephone Encounter - Edita Colon M.A. - 11/17/2023 3:04 PM EDT Tomy 02/10/23 Lab Results Component Value Date NA 138 02/10/2023 K 4.4 02/10/2023 CO2 30 02/10/2023 CL 104 02/10/2023 BUN 19 02/10/2023 CREAT 1.13 02/10/2023 GLU 100 02/10/2023 CA 9.2 02/10/2023 GFR 82 02/10/2023 * Telephone Encounter - Robert Hodges - 11/17/2023 2:40 PM EDT Patient would like script to be: E-PRESCRIBED/FAXED TO PHARMACY ?? WHEN WAS THE PATIENT'S LAST APPOINTMENT IN ADULT MEDICINE? 02-10-23 ?? WHEN WAS THE LAST TIME THE PATIENT SAW THEIR PCP? Has not seen pcp ?? Does patient have an upcoming appointment? Patient was sent a My Chart request to set up an appointment as they are due. ?? (THE MEDICATION REQUESTED IS ON THE MED LIST ABOVE) All of the medications requested were on the CURRENT MEDS list ?? Did you check the Pharmacy information above?: YES ?? Patient wants: 30 -day supply ?? Is this a mail order prescription request ? NO ?? If the refill is from a FAXED refill request what is the RX # listed on the fax? N/A ?? Patients current insurance carrier is: Payor: [place] POS / Plan: FEP BASIC $30/$40 [place] / Product Type: PPO [id number] ?? documented in this encounter Plan of Treatment Not on file documented as of this encounter Visit Diagnoses Diagnosis Chronic gout without tophus, unspecified cause, unspecified site documented in this encounter Care Teams Clinical Research Specialist Relationship Specialty Start Date End Date John Paul Rdz MD [address] [place] [address] PCP - General Internal Medicine 04/10/21 documented as of this encounter
--- OUTSIDE RECORDS SUMMARY | 2024-03-08 13:26 | XMS_ITS | Encounter Summary ---
Author Organization [facility] Address [address] [place] [address] Care Team Providers Care Lung Puller Name Role Phone Alon Sharma MD Primary Care Provider Unavail able John Paul Rdz MD Primary Care Provider [phone] Encounter Details Date Type Department Care Team Description 12/27/2017 Hogshead Packer Report Medical Records [address] [place] [address] Myah Rizvi PA-C Social History Tobacco Use Types Packs/Day [...] on filedocumented in this encounter Care Teams Lung Puller Relationship Specialty Start Date End Date Alon Sharma MD PCP - General 11/22/08 04/09/21 John Paul Rdz MD [address] [place] [address] PCP - General Internal Medicine 04/10/21 documented as of this encounter
--- OUTSIDE RECORDS SUMMARY | 2024-03-08 13:26 | XMS_ITS | Encounter Summary ---
Author Organization [facility] Address [address] [place] [address] Care Team Providers Care Dietary Services Manager Name Role Phone Alon Sharma MD Primary Care Provider Unavail able John Paul Rdz MD Primary Care Provider [phone] Encounter Details Date Type Department Care Team Description 05/26/2018 Schedule Announcer Report Medical Records [address] [place] [id number] [place] [address] Social History Tobacco Use Types Packs/Day Years [...] on filedocumented in this encounter Care Teams Dietary Services Manager Relationship Specialty Start Date End Date Alon Sharma MD PCP - General 11/22/08 04/09/21 John Paul Rdz MD [address] [place] [address] PCP - General Internal Medicine 04/10/21 documented as of this encounter
--- OUTSIDE RECORDS SUMMARY | 2024-03-08 13:27 | XMS_ITS | Continuity of Care Document ---
Author Name [facility] Organization [facility] Care Team Providers Care Computer Designer Name Role Phone [facility] Unavailable Unavailable Problems Combined list of problems from Department of Defense and Veterans Affairs facilities. It does not include entries that were removed or entered in error. Problem Status Onset Date Problem Type Date of Resolution Comments Source assess patient condition work-related occupational disease Inactive Condition [facility] primary insomnia Active Condition [facility] dermatitis Active Condition [facility] bursitis prepatellar Active Condition [facility] Diagnosis: ICD-10-CM Z46.0 Encounter for fit/adjst of spectacles and contact lenses Active Diagnosis [facility] Diagnosis: ICD-10-CM Z01.00 Encounter for exam of eyes and vision w/o abnormal findings Active Diagnosis [facility] Immunizations Combined list of available immunizations from the Department of Defense and Veterans Affairs facilities. Immunization Series Date Given Administered By Site Reaction Lot Number CVX Code Drug Mastic Floor Layer Status Comments Source influenza, seasonal, injectable 2021 [id number] Seqirus complet ed influenza , seasonal, injectabl e 11/19/21 Given Ambulat ory Pharmac y influenza, seasonal, injectable 2020 [id number] Seqirus complet ed influenza , seasonal, injectabl e 10/31/20 Given Ambulat ory Pharmac y COVID Vaccine Moderna 2020 [id number] complet ed COVID Vaccine Moderna 04/13/20 Given Ambulat ory Pharmac y COVID Vaccine Moderna 2020 [id number] complet ed COVID Vaccine Moderna 03/15/20 Given Ambulat ory Pharmac y influenza, seasonal, injectable 2019 [id number] complet ed influenza , seasonal, injectabl e 10/12/19 Given Ambulat ory Pharmac y influenza, seasonal, injectable 2018 [id number] 141 sanofi pasteur complet ed influenza , seasonal, injectabl e 11/09/18 Given Ambulat ory Pharmac y Td (adult) 2017 [id number] 138 complet ed Td (adult) 01/02/18 Given Ambulat ory Pharmac y influenza, seasonal, injectable-pf 2017 [id number] Seqirus complet ed influenza , seasonal, injectabl e-pf 11/11/17 Given Ambulat ory Pharmac y influenza, seasonal, injectable-pf 2016 [id number] 140 Seqirus complet ed influenza , seasonal, injectabl e-pf 12/07/16 Given Ambulat ory Pharmac y influenza, seasonal, injectable 2015 [id number] 141 GlaxoSmithKli ne complet ed influenza , seasonal, injectabl e 12/17/15 Given Ambulat ory Pharmac y influenza, seasonal, injectable-pf 2014 [id number] 140 CSL Behring complet ed influenza , seasonal, injectabl e-pf 11/10/14 Given Ambulat ory Pharmac y hepatitis B adult vaccine 2014 [id number] GlaxoSmithKli ne complet ed hepatitis B adult vaccine 05/19/14 Given Ambulat ory Pharmac y influenza, seasonal, injectable-pf 2013 [id number] 140 CSL Behring complet ed influenza , seasonal, injectabl e-pf 11/09/13 Given Ambulat ory Pharmac y hepatitis B adult vaccine 2013 [id number] Merck & Company Inc complet ed hepatitis B adult vaccine 11/09/13 Given Ambulat ory Pharmac y hepatitis B adult vaccine 2013 [id number] 43 Merck & Company Inc complet ed hepatitis B adult vaccine 09/15/13 Given Ambulat ory Pharmac y influenza, seasonal, injectable-pf 2012 [id number] 140 Novartis Pharmaceutica complet ed influenza , seasonal, injectabl e-pf 11/29/12 Given Ambulat ory Pharmac y influenza, seasonal, injectable-pf 2011 [id number] 140 CSL Behring complet ed influenza , seasonal, injectabl e-pf 11/21/11 Given Ambulat ory Pharmac y influenza virus vaccine, live 2010 [id number] 111 [employer]cean [employer] Inc comple t ed influenza virus vaccine, live 12/13/10 Given Ambulat ory Pharmac y influenza virus vaccine, live 2009 [id number] 111 MediCom[employer] Inc comple t ed influenza virus vaccine, live 12/13/09 Given Ambulat ory Pharmac y Novel influenza-H1N 1-09, injectable 2009 [id number] 127 Novartis Pharmaceutica ls complet ed Novel influenza -[id number], injectabl e 02/15/09 Given Ambulat ory Pharmac y influenza virus vaccine, live 2008 [id number] 111 [employer] Inc comple t ed influenza virus vaccine, live 11/10/08 Given Ambulat ory Pharmac y tetanus, diphtheria, acellular pertu is 2007 [id number] 115 sanofi pasteur complet ed tetanus, diphtheri a, acellular pertussis 12/10/07 Given Ambulat ory Pharmac y influenza virus vaccine,split 2007 [id number] 15 GlaxoSmithKli ne complet ed influenza virus vaccine,s plit 12/10/07 Given Ambulat ory Pharmac y influenza virus vaccine,split 2006 [id number] 15 GlaxoSmithKli ne complet ed influenza virus vaccine,s plit 12/10/06 Given Ambulat ory Pharmac y influenza virus vaccine,split 2006 [id number] Unknown complet ed influenza virus vaccine,s plit 04/10/06 Given Ambulat ory Pharmac y influenza virus vaccine,split 2004 [id number] 15 sanofi pasteur complet ed influenza virus vaccine,s plit 01/05/05 Given Ambulat ory Pharmac y tuberculin purified protein derivative 2003 [id number] 96 Zohreh Adonay complet ed tuberculi n purified protein derivativ e 02/27/03 Given Ambulat ory Pharmac y tuberculin purified protein derivative 2003 [id number] 96 Grundy Adonay complet ed tuberculi n purified protein derivativ e 02/13/03 Given Ambulat ory Pharmac y influenza virus vaccine, whole virus 2002 [id number] 16 Novartis Pharmaceutica ls complet ed influenza virus vaccine, whole virus 12/28/02 Given Ambulat ory Pharmac y typhoid vaccine, parenteral 2002 [id number] sanofi pasteur complet ed typhoid vaccine, parentera l 07/10/02 Given Ambulat ory Pharmac y tuberculin purified protein derivative 2002 [id number] 96 sanofi pasteur complet ed tuberculi n purified protein derivativ e 02/14/02 Given Ambulat ory Pharmac y influenza virus vaccine, whole virus 2001 [id number] 16 sanofi pasteur complet ed influenza virus vaccine, whole virus 11/28/01 Given Ambulat ory Pharmac y influenza virus vaccine, whole virus 2000 [id number] 16 [facility] complet ed influenza virus vaccine, whole virus 01/06/01 Given Ambulat ory Pharmac y tuberculin purified protein derivative 2000 [id number] 96 sanofi pasteur complet ed tuberculi n [...] Pharmac y tuberculin purified protein derivative 2000 [id number] 96 [employer] complet ed tuberculi n purified protein derivativ e 05/24/00 Given Ambulat ory Pharmac y tuberculin purified protein derivative 2000 [id number] 96 [employer] complet ed tuberculi n purified protein derivativ e 05/17/00 Given Ambulat ory Pharmac y influenza virus vaccine, whole virus 1999 [id number] 16 [facility] complet ed influenza virus vaccine, whole virus [...] poliovirus vaccine, live, oral 1997 [id number] 02 [facility] [employer] complet ed polioviru s vaccine, live, oral 11/08/97 Given Ambulat ory Pharmac y hepatitis A adult vaccine 1997 [id number] 52 [employer] complet ed hepatitis A adult vaccine 11/08/97 Given Ambulat ory Pharmac y measles and rubella virus vaccine 1997 04 complet ed measles and rubella virus vaccine 11/08/97 Given Ambulat ory Pharmac y influenza virus vaccine, whole virus [id number] 16 [employer] complet ed influenza virus vaccine, whole virus 11/01/97 Given Ambulat ory Pharmac y tetanus-dipht h toxoids (Td) adult/adol [id number] 09 [facility] complet ed tetanus-d iphth toxoids (Td) adult/ado l 11/01/97 Given Ambulat ory Pharmac y meningococcal polysaccharid e (MPSV4) [id number] 32 [facility] complet ed meningoco ccal polysacch aride [...] Prevention' s HIV diagnostic algorithm. Refer to [facility] Lab Guide for additional information : [email or web address]://[employer]. [facility]/ kj/kx5/EPIL ab/Pages/la b_guide.asp x Testing performed by [facility] Aristides garcia Sendouts Repository Sample Received (04/16/23 11:11 AM) 04/15 N [facility] Vital Signs Combined list of inpatient and outpatient Vital Signs from Department of [facility] and [facility], ranging from 12 months to all on record, depending upon the facility. Vital Sign Value Date Comments Source No data available for this section Ambulatory Pharmacy Encounters Combined list of: 1) Encounters from Department of [facility] facilities going back up to thelast 18 months. 2) Encounters from the Department of [facility] facilities going back up to 280 months. Location Location Details Encounter Type Encounter Number Reason For Visit Attending Provider ADM Date DC Date Status Disposition Source [address] [place] [address] OUTPATIENT [id number] RAMU VAZQUEZ 05/05 Released w/o Limitations [address] [place] [address] OUTPATIENT [id number] MELECIO JEREZ 08/18 Released w/o Limitations [address] [place] [address] OUTPATIENT [id number] MELECIO JEREZ 09/01 Released w/o Limitations [address] [place] [address] EYE EXAM NEW PATIENT [id number] Diagnos is: ICD-10- CM Z01.00 Encount er for exam of eyes and vision w/o abnorma l finding s
Garland MADSEN A 12/03 [facility] [place] [facility] Outpatient Encounter [id number] 12/06 [place] [facility] [place] [facility] FIT SPECTACLES MONOFOCAL [id number] Diagnos is: ICD-10- CM Z46.0 Encount er for fit/adj st of spectac les and contact lenses< br/> WHITEBOUBACAR A 12/06 [facility] [id number] [facility] Clinic [id number] AGUSTINA RDZ 04/15 Discharge Disposition: Home or Self Care [id number] [facility] [id number] [facility] Outpatient [id number] AGUSTINA RDZ 04/15 Discharge Disposition: Home or Self Care [id number] [facility] Procedures Combined list of: 1) Procedures from Department of Veterans Affairs facilities going back up to [facility], not all [place] non-surgical procedures are included; 2) All procedures from the Department of Defense facilities. Procedure Procedure Type Code Date Perfomer Comments Sebastian catalan SCREENING TEST OF VISUAL ACUITY, QUANTITATIVE, BILATERAL 07/13/2004 [facility] No data available for this section [facility] Pharmacy Social History Combined list of available smoking, tobacco, and other social history from Department of Defense and Veterans Affairs facilities. Social History Type Response Date Comment Sebastian catalan This section is an empty social history section. [facility] Assessment and Plan Combined list of future [...] neck pain HTN SF 507: _ Comments: 03/08/2024 Ambulatory Pharmacy Functional Status Combined list of recent functional and cognitive assessments recorded at Department of Defense and Veterans Affairs ([place]).[facility] Functional [place] Measurement (FIM) Scale: 1 = Total Assistance (Subject = 0% +), 2 = Maximal Assistance (Subject = 25% +), 3 = Moderate Assistance (Subject = 50% +), 4 = Minimal Assistance (Subject = 75% +), 5 = Supervision, 6 = Modified [place] (Device), 7 = Complete [place] (Timely, Safely). Assessment Date/Time Source Assessment Type Assessment Skill Assessment Score Assessment Details No data available for this section
--- OUTSIDE RECORDS SUMMARY | 2024-03-08 13:27 | XMS_ITS | Continuity of Care Document ---
Author Organization [facility] [place] Address [address] [place] [address]- Care Team Providers Care Atomic Physics Professor Name Role Phone Destiny CORE PASTERAlcides Primary Care Physician Encounter [facility] Date(s): 01/11/24 - 02/10/24 [facility] [place] [address] [place], [place] [address] Encounter Type: Triage Allergies, Adverse [...] Refills, Maintenance, 10/27/23 4:39:00 PM EDT, Tablet, [facility]/pharmacy #[id number], Partial fill upon patient request if [...] Team Personnel Name: Alcides Dixon NP Position: [facility] PCO Associate Professional Member Role: PCP Address: [address] [place] [address] [place] [address]- Telecom: Care Team Related Persons Name: YOLANDA THOMAS Insurance Providers Guarantor name: YEISON AMARISPADILLA [facility] Plan Information #: 1 Payer: [employer] E[employer] Member Number: NA Policy Number: NA Group Number: NA
--- OUTSIDE RECORDS SUMMARY | 2024-03-08 13:27 | XMS_ITS | Clinical Summary ---
Author Organization [facility] Address [address] [place] [address] Care Team Providers Care Lead Cargoman Name Role Phone John Paul Rdz MD Primary Care Provider [phone] Medications Medication Sig Dispensed Refills Start Date End Date Status allopurinoL (ZYLOPRIM) 300 mg tabletIndications:Chr onic gout, unspecified, without tophus (tophi) TAKE 1 TABLET BY MOUTH EVERY DAY 90 tablet 02/14/2024 Active allopurinoL (ZYLOPRIM) 300 mg tablet Take 1 tablet (300 mg total) by mouth 1 (one) time each day. 11/17/2023 Active amLODIPine (NORVASC) 5 mg tablet Take 1 tablet (5 mg total) by mouth 1 (one) time each day. Active Encounters Date Type Department Care Team Description 01/13/2024 Telephone Neurosurgery [place] [address] [place] [address] Lisa Morrison MA from Last 3 Months Surgical History Surgery Date Site/Laterality Comments TONSILLECTOMY PROCEDURE: HISTORICAL TONSILLECTOMY OTHER SURGICAL HISTORY 12/2017; 03/30 PROCEDURE: ---- OTHER ----; COMMENT: kidney stone removal NECK SURGERY 09/25/2020 PROCEDURE: HISTORICAL NECK SURGERY TONSILLECTOMY PROCEDURE: HISTORICAL TONSILLECTOMY LITHOTRIPSY PROCEDURE: HISTORICAL LITHOTRIPSY CHOLECYSTECTOMY 2021 PROCEDURE: HISTORICAL CHOLECYSTECTOMY Medical History Medical History Date Comments Kidney stones DX:Kidney stones Gall stones DX:Gall stones Family History Medical History Relation Name Comments Arthritis Father gouty tophi Coronary artery disease Father susie y in life; age 57 [place], had CABG few yrs prior Hypertension Father Coronary artery disease Maternal Grandfather early in life Brain cancer Maternal Grandmother Coronary artery disease Paternal Grandfather early in life Arthritis Paternal Grandmother Thyroid disease Sister 1 Arthritis Sister 2 knee pains Diabetes Neg Hx Relation Name Status Comments Brother Alive 1,HELAHTY Father Maternal Grandfather Maternal Grandmother Mother Alive HEALTHY Paternal Grandfather Paternal Grandmother Sister 1 Alive 1, Sister 2 Social History Tobacco Use Types Packs/Day Years Used Date Smoking Tobacco: Never Smokeless Tobacco: Never Alcohol Use Standard Drinks/Week Comments No 0 (1 standard drink = 0.6 oz pur e alcohol) Sex and Gender Information Value Date Recorded Sex Assigned at Not on file Gender Identity Not on file Sexual Orientation Not on file Obstetrics History Last Filed Vital Signs Vital Sign Reading Time Taken Comments Blood Pressure 145/98 02/10/2023 8:15 AM EST Sitting R Arm Pulse 80 02/10/2023 8:15 AM EST auto cuff Temperature - - Respiratory Rate - - Oxygen Saturation - - Inhaled Oxygen Concentration - - Weight 80.9 kg (178 lb 6.4 oz) 02/10/2023 8:15 AM EST Height 162.6 cm (5' 4 ) 12/24/2022 10:1 2 AM EST Body Mass Index 30.62 12/24/2022 10:12 AM EST Plan of Treatment Health Maintenance Due Date Last Done Comments IPV Vaccines (2 of 3 - Adult catch-up series) 12/06/1997 11/08/1997 Cholesterol Screening (Lipid Panel) 01/05/2022 Colorectal Cancer Screening: Colonoscopy 01/05/2022 Depression Screening 01/05/2022 HIV Screening 01/05/2022 Hepatitis C Screening 01/05/2022 Social Influencers of Health Screening 01/05/2022 COVID-19 Vaccine ( season) 2023 04/13/2020, 03/15/2020 Influenza Vaccine (#1) 2023 3, 10/31/2020, 10/12/2019, Additional history exists DTaP,Tdap,and Td Vaccines (4 - Td or Tdap) 01/03/2028 01/02/2018, 05/26/2007, 11/01/1997 Hepatitis A Vaccines Aged Out 07/18/1998, 11/08/18 98 No longer eligible based on patient's age to complete this topic Hepatitis B Vaccines Completed 11/22/2007, 06/26/2007, 05/26/2007 HIB Vaccines Aged Out No longer eligi ble based on patient's age to complete this topic HPV Vaccines Aged Out No longer eligi ble based on patient's age to complete this topic MMR Vaccines Aged Out No longer eligi ble based on patient's age to complete this topic Meningococcal ACWY Vaccine Aged Out N o longer eligible based on patient's age to complete this topic Pneumococcal Vaccine: Pediatrics (0 to 5 Years) and At-Risk Patients (6 to 64 Years) Aged Out No longer eligible based on patient's age to complete this topic RSV Immunization Patients Under 20 months Aged Out No longer eligible based on patient's age to complete this topic Varicella Vaccines Aged Out No longer eligible based on patient's age to complete this topic Care Teams Lead Cargoman Relationship Specialty Start Date End Date John Paul Rdz MD PCP - General Internal Medicine 04/10/21
--- OUTSIDE RECORDS SUMMARY | 2024-03-08 13:27 | XMS_ITS | Encounter Summary ---
Author Organization [facility] Address [address] [place] [address] Care Team Providers Care Hedis Nurse Name Role Phone John Paul Rdz MD Primary Care Provider [phone] Encounter Details Date Type Department Care Team Description 05/21/2022 Orders Only Medicine/Pediatrics - [address] [phone] Kendrick Azul PA-C [address] [place] [address] Social History Tobacco Use Types Packs/Day Years Used Date Smoking Tobacco: Never Smokeless Tobacco: Never Alcohol Use Standard Drinks/Week Comments No 0 (1 standard drink = 0.6 oz pur e alcohol) Sex Assigned at Date Recorded Not on file Job Start Date Occupation Industry Not on file Not on file Not on file COVID-19 Exposure Response Date Recorded In the last 10 days, have yo u been in contact with someone who was confirmed or suspected to have Coronavirus/COVID-19? No / Unsure 05/20/2022 8:48 AM EDT documented as of this encounter Plan of Treatment Not on file documented as of this encounter Visit Diagnoses Not on filedocumented in this encounter Care Teams Hedis Nurse Relationship Specialty Start Date End Date John Paul Rdz MD [address] [place] [id number] PCP - General Internal Medicine 04/10/21 documented as of this encounter
--- OUTSIDE RECORDS SUMMARY | 2024-03-08 13:27 | XMS_ITS | Clinical Summary ---
Author Organization [facility] Address [address] [place] [address] Care Team Providers Care Set Up Mechanic Coil Winding Machines Name Role Phone Alon Sharma MD Primary Care Provider [phone] Social History Tobacco Use Types Packs/Day Years Used Date Smoking Tobacco: Never Assessed Sex and Gender Information Value Date Recorded Sex Assigned at Not on file Gender Identity Not on file Sexual Orientation Not on file Plan of Treatment Health Maintenance Due Date Last Done Comments Hepatitis B Vaccines (1 of 3 - 3-dose series) 1977 Hepatitis C Screening 1977 Depression Screening 1989 Preventative Health Evaluation 08/28/1995 DTap / Tdap / Td (2 - Td or Tdap) 05/25/2017 05/26/2007 Colon Cancer Screening (Colonoscopy) 2022 COVID-19 Vaccine ( season) 2023 04/13/2020, 03/15/2020 Influenza Vaccine (#1) 2023 , 11/11/2017, 12/17/2015, Additional history exists Pneumococcal Vaccine Aged Out No long er eligible based on patient's age to complete this topic RSV Ped < 20 months Aged Out No longe r eligible based on patient's age to complete this topic Care Teams Set Up Mechanic Coil Winding Machines Relationship Specialty Start Date End Date Alon Sharma MD [address] [place] [address] PCP - General Internal Medicine 12/05/19
--- OUTSIDE RECORDS SUMMARY | 2024-03-08 13:27 | XMS_ITS | Encounter Summary ---
Author Organization [facility] Address [address] [place] [address] Care Team Providers Care Tax Technician Name Role Phone Alon Sharma MD Primary Care Provider Unavail able John Paul Rdz MD Primary Care Provider [phone] Reason for Visit * Reason Onset Date Comments injection 10/17/2015 Encounter Details Date Type Department Care Team Description 10/17/2015 Telephone Physiatry - [address] [address] Tam Brower DO injection Social History Tobacco Use Types Packs/Day Years [...] Telephone Encounter - Edel Murillo M.A. - 10/17/2015 4:22 PM EDT Appointment rescheduled * Telephone Encounter - Mariah Stephens - 10/17/2015 2:41 PM EDT Patient is calling because he is unable to keep injection appointment with 11/03/2015 he can do it any Tuesday before or after. Please call. documented in this encounter Plan of Treatment Not on file documented as of this encounter Visit Diagnoses Not on filedocumented in this encounter Care Teams Tax Technician Relationship Specialty Start Date End Date Alon Sharma MD PCP - General 11/22/08 04/09/21 John Paul Rdz MD [address] [place] [address] PCP - General Internal Medicine 04/10/21 documented as of this encounter
--- OUTSIDE RECORDS SUMMARY | 2024-03-08 13:27 | XMS_ITS | Encounter Summary ---
Author Organization [facility] Address [address] [place] [address] Care Team Providers Care Jar Filler Name Role Phone John Paul Rdz MD Primary Care Provider [phone] Encounter Details Date Type Department Care Team Description 10/15/2022 Pt. Non Urgent Medical Question Pediatrics - [address] [address] John Palu Rdz MD [address] [place] [id number] Social History Tobacco Use Types Packs/Day Years [...] suspected to have Coronavirus/COVID-19? No / Unsure 10/08/2022 8:34 AM EDT documented as of this encounter Progress Notes * Laurie Valentine M.A. - 10/19/2022 8:02 AM EDT I was not in the office yesterday, forward to [place] [employer] [facility] pool. documented in this encounter Miscellaneous Notes * Telephone Encounter - Laurie Valentine M.A. - 10/15/2022 3:58 PM EDTFrom: Kolby Tolliver To: Delores Rdz Sent: 10/15/2022 3:53 PM EDT Subject: Referral error/info Hi. On Oct I visited the office for an after ER visit with Linden Aguila. At that time she was to refer me to Gastroenterology. I received a call and it was for Pediatric Gastro but they connected me to adult, but the adult side does not have a referral. They have a fax number to use: [phone] Second to that, they are sched uling out into April, which seems crazy to me so far out, but it is what it is. I was wondering if there were other options? And lastly, just an FYI, I dropped off the stool sample to the lab at [facility] this morning. documented in this encounter Plan of Treatment Not on file documented as of this encounter Visit Diagnoses Not on filedocumented in this encounter Care Teams Jar Filler Relationship Specialty Start Date End Date John Paul Rdz MD [address] [place] [id number] PCP - General Internal Medicine 04/10/21 documented as of this encounter
--- OUTSIDE RECORDS SUMMARY | 2024-03-08 13:28 | XMS_ITS | Encounter Summary ---
Author Organization [facility] Address [address] [place] [address] Care Team Providers Care Compliance Vice President Name Role Phone Alon Sharma MD Primary Care Provider Unavail able John Paul Rdz MD Primary Care Provider [phone] Reason for Visit * Reason Comments E-prescribe Rx Request Encounter Details Date Type Department Care Team Description 02/09/2021 Refill Medicine/Pediatrics [address] [address] Alon Sharma MD E-prescribe Rx Request Social History Tobacco Use [...] Exposure Response Date Recorded In the last month, have you been in contact with someone who was confirmed or suspected to have Coronavirus / COVID-19? No / Unsure 02/04/2021 7:41 AM EST documented as of this encounter Miscellaneous Notes * Telephone Encounter - Alon Sharma MD - 02/10/2021 9:06 PM EST Notes from last visit indicate that the patient is no longer taking this medication, this appears to be auto requests. If he is in fact taking this medication, can be sent to me again for refill * Telephone Encounter - Rhea Mcgregor M.A. - 02/10/2021 2:19 PM EST Last office visit 02/04 no pending appt Lab Results Component Value Date NA 141 02/05/2021 K 4.7 02/05/2021 CO2 31 02/05/2021 CL 105 02/05/2021 BUN 16 02/05/2021 CREAT 1.05 02/05/2021 GLU 90 02/05/2021 CA 9.7 02/05/2021 GFR > 60 02/05/2021 * Telephone Encounter - Jeanne Solis - 02/10/2021 9:10 AM EST Patient would like script to be: E-PRESCRIBED/FAXED TO PHARMACY WHEN WAS THE PATIENT'S LAST APPOINTMENT IN ADULT MEDICINE? 02/04/21 WHEN WAS THE LAST TIME THE PATIENT SAW THEIR PCP? 08/04/18 Does patient have an upcoming appointment? no (THE MEDICATION REQUESTED IS ON THE MED LIST ABOVE) All of the medications requested were on the CURRENT MEDS list Did you check the Pharmacy information above?: YES Patient wants: 90 -day supply Is this a mail order prescription request ? NO If the refill is from a FAXED refill request what is the RX # listed on the fax? N/A Patients current insurance carrier is: Payor: [employer]/PPO POS / Plan: FEP BASIC $30/$40 [place] / Product Type: PPO [id number] documented in this encounter Plan of Treatment Not on file documented as of this encounter Visit Diagnoses Diagnosis Cervicalgia documented in this encounter Care Teams Compliance Vice President Relationship Specialty Start Date End Date Alon Sharma MD PCP - General 11/22/08 04/09/21 John Paul Rdz MD [address] [place], [place] [id number] PCP - General Internal Medicine 04/10/21 documented as of this encounter
--- OUTSIDE RECORDS SUMMARY | 2024-03-08 13:28 | XMS_ITS | Encounter Summary ---
Author Organization [facility] Address [address] [place] [address] Care Team Providers Care Ramp Flight Attendant Name Role Phone John Paul Rdz MD Primary Care Provider [phone] Encounter Details Date Type Department Care Team Description 07/28/2021 Pt. Non Urgent Medical Question Adult Medicine [address] [address] John Paul Rdz MD [address] [place] [address] Social History Tobacco Use Types Packs/Day Years [...] encounter Miscellaneous Notes * Telephone Encounter - Funmi Bragg M.A. - 07/28/2021 11:50 AM EDTFrom: Kolby Tolliver To: Delores Rdz Sent: 07/28/2021 11:45 AM EDT Subject: Gall Stones I would like to note that yesterday, July 27, I had my Gall Bladder removed due to gallstones. The procedure occurred at [facility] and was performed by Dr. Divya Nieves. documented in this encounter Plan of Treatment Not on file documented as of this encounter Visit Diagnoses Not on filedocumented in this encounter Care Teams Ramp Flight Attendant Relationship Specialty Start Date End Date John Paul Rdz MD [address] [place] [address] PCP - General Internal Medicine 04/10/21 documented as of this encounter
--- OUTSIDE RECORDS SUMMARY | 2024-03-08 13:28 | XMS_ITS | Encounter Summary ---
Author Organization [facility] Address [address] [place] [address] Care Team Providers Care Director Of Software Development Name Role Phone Alon Sharma MD Primary Care Provider Unavail able John Paul Rdz MD Primary Care Provider [phone] Reason for Visit * Reason Onset Date Comments Advice 03/06/2012 Encounter Details Date Type Department Care Team Description 03/06/2012 Pt. Non Urgent Medical Question Medicine/Pediatrics - [address] [address] Alon Sharma MD Social History Tobacco Use Types Packs/Day Years Used Date Smoking Tobacco: Never Smokeless Tobacco: Never Alcohol Use Standard Drinks/Week Comments Yes 0 (1 standard drink = 0.6 oz pur e alcohol) 3 drinks per mo Sex Assigned at Date Recorded Not on file Job Start Date Occupation Industry Not on file Not on file Not on file documented as of this encounter Progress Notes * Astrid Nelson LPremP.N. - 03/06/2012 8:30 AM ESTFrom: KOLBY THOMAS To: Alon Sharma MD Sent: TueMar 06, 2012 8:25 AM Subject: Follow up, Gout Hello Dr. Sharma. I have completed the 200mg per day of Allopurinol and can make it in sometime this week to see the effect that dosage had on my Uric Acid level. I would like to note that my left foot is still an ongoing issue. The indomethacin did relieve the swelling, but my foot remains unable to fully flex and is painful through each toe and forefoot (I still hobble around at many times). I am not sure what at all can be done, but I hope you have trick up your sleeve. Thank you! documented in this encounter Plan of Treatment Not on file documented as of this encounter Visit Diagnoses Not on filedocumented in this encounter Care Teams Director Of Software Development Relationship Specialty Start Date End Date Alon Sharma MD PCP - General 11/22/08 04/09/21 John Paul Rdz MD [address] [place] [address] PCP - General Internal Medicine 04/10/21 documented as of this encounter
--- OUTSIDE RECORDS SUMMARY | 2024-03-08 13:28 | XMS_ITS | Encounter Summary ---
Author Organization [facility] Address [address] [place] [address] Care Team Providers Care Rehabilitation Aide/Scheduler Name Role Phone Alon Sharma MD Primary Care Provider Unavail able John Paul Rdz MD Primary Care Provider [phone] Reason for Visit * Reason Comments E-prescribe Rx Request Encounter Details Date Type Department Care Team Description 04/05/2021 Refill [facility] Neuro[facility] [place] [address] [address] [place] PA-C [address] [address] E-prescribe Rx Request Social History Tobacco Use [...] as of this encounter Visit Diagnoses Diagnosis Cervical radiculopathy Brachial neuritis or radiculitis nos documented in this encounter Care Teams Rehabilitation Aide/Scheduler Relationship Specialty Start Date End Date Alon Sharma MD PCP - General 11/22/08 04/09/21 John Paul Rdz MD [address] [place] [address] PCP - General Internal Medicine 04/10/21 documented as of this encounter
--- OUTSIDE RECORDS SUMMARY | 2024-03-08 13:28 | XMS_ITS | Encounter Summary ---
Author Organization [facility] Address [address] [place] [address] Care Team Providers Care Backend Python Developer Name Role Phone Alon Sharma MD Primary Care Provider Unavail able John Paul Rdz MD Primary Care Provider [phone] Encounter Details Date Type Department Care Team Description 08/24/2012 Pt. Non Urgent Medical Question Medicine/Pediatrics - [address] [address] Alon Sharma MD Social History Tobacco Use [...] as of this encounter Progress Notes * Lydia Ocasio L.P.N. - 08/24/2012 10:54 AM EDTFrom: KOLBY THOMAS To: Alon Sharma MD Sent: Lindsey Aug 24, 2012 10:48 AM Subject: Shoulder Hello Dr. Sharma. The shoulder pain I was experiencing back during my physical has yet to subside with routine rest and stretching. I am still limited by pain in my range of motion when reaching to my back or across my body. I also have a small amount of ever present pain that shoots occasionally. documented in this encounter Plan of Treatment Not on file documented as of this encounter Visit Diagnoses Not on filedocumented in this encounter Care Teams Backend Python Developer Relationship Specialty Start Date End Date Alon Sharma MD PCP - General 11/22/08 04/09/21 John Paul Rdz MD [address] [place] [address] PCP - General Internal Medicine 04/10/21 documented as of this encounter
--- OUTSIDE RECORDS SUMMARY | 2024-03-08 13:28 | XMS_ITS | Continuity of Care Document ---
Author Organization [facility] Address [address] [place] [address]- Care Team Providers Care Fall Internship Name Role Phone Destiny EASTER BUNNYAlcides Primary Care Physician Encounter [facility] Date(s): 01/13/24 - 02/12/24 [facility] [place] [address] [place], [place] [address] Encounter Type: Triage Allergies, Adverse Reactions, Alerts [...] Refills, Maintenance, 10/27/23 4:39:00 PM EDT, Tablet, [facility]/pharmacy #[id number], Partial fill upon patient [...] PCO Associate Professional Member Role: PCP Address: [address] [place] [address] [place] [address]- Telecom: Care Team Related Persons Name: YOLANDA THOMAS Insurance Providers Guarantor name: [facility] Plan Information #: 1 Payer: [employer] ELECT Member Number: NA Policy Number: NA Group Number: NA
--- OUTSIDE RECORDS SUMMARY | 2024-03-08 13:28 | XMS_ITS | Encounter Summary ---
Author Organization [facility] Address [address] [place] [address] Care Team Providers Care Physical Plant Manager Name Role Phone Alon Sharma MD Primary Care Provider Unavail able John Paul Rdz MD Primary Care Provider [phone] Reason for Visit * Reason Onset Date Comments other 01/15/2012 Encounter Details Date Type Department Care Team Description 01/15/2012 Pt. Non Urgent Medical Question Medicine/Pediatrics - [address] [address] Alon Sharma MD Social History Tobacco Use [...] as of this encounter Progress Notes * America Olivares L.P.N. - 01/17/2012 8:42 AM ESTFrom: KOLBY THOMAS To: Alon Sharma MD Sent: Sat Jan 15, 2012 5:50 PM Subject: Check up I am 1 day away from completing the 30 day supply of Allopurinol 100mg. Should I make an appointment to have blood drawn for the UA levels? documented in this encounter Plan of Treatment Not on file documented as of this encounter Visit Diagnoses Not on filedocumented in this encounter Care Teams Physical Plant Manager Relationship Specialty Start Date End Date Alon Sharma MD PCP - General 11/22/08 04/09/21 John Paul Rdz MD [address] [place] [address] PCP - General Internal Medicine 04/10/21 documented as of this encounter
--- OUTSIDE RECORDS SUMMARY | 2024-03-08 13:28 | XMS_ITS | Encounter Summary ---
Author Organization [facility] Address [address] [place] [address] Care Team Providers Care Public School Teacher Name Role Phone Alon Sharma MD Primary Care Provider Unavail able John Paul Rdz MD Primary Care Provider [phone] Reason for Visit * Reason Onset Date Comments Information Needed 08/12/2020 Encounter Details Date Type Department Care Team Description 08/12/2020 Telephone Orthopedics-[address] [address] Kyle Hodges PA-C Information Needed Social History Tobacco Use Types Packs/Day Years [...] have Coronavirus / COVID-19? No / Unsure 07/17/2020 8:58 AM EDT documented as of this encounter Miscellaneous Notes * Telephone Encounter - Jaz Cui - 08/12/2020 4:46 PM EDT Kiara Madrid called, States she wanted to talk with Kyle Hodges about the Plan after she saw the patient today, please give her a phone call back documented in this encounter Plan of Treatment Not on file documented as of this encounter Visit Diagnoses Not on filedocumented in this encounter Care Teams Public School Teacher Relationship Specialty Start Date End Date Alon Sharma MD PCP - General 11/22/08 04/09/21 John Paul Rdz MD [address] [place] [address] PCP - General Internal Medicine 04/10/21 documented as of this encounter
--- OUTSIDE RECORDS SUMMARY | 2024-03-08 13:28 | XMS_ITS | Encounter Summary ---
Author Organization [facility] Address [address] [place] [address] Care Team Providers Care Hydroelectric Production Technician Name Role Phone Alon Sharma MD Primary Care Provider Unavail able John Paul Rdz MD Primary Care Provider [phone] Reason for Visit * Reason Onset Date Comments Provider Call Back 02/02/2021 Encounter Details Date Type Department Care Team Description 02/02/2021 Telephone [facility] Neurosurgery [place] [address] [phone] Kiara Hassan PA-C [address] [place] [address] Provider Call Back Social History Tobacco Use Types Packs/Day Years [...] encounter Miscellaneous Notes * Telephone Encounter - [place] PA-C - 02/10/2021 2:55 PM EST Patient had some improvement on the steroids, and now the left arm pain is not as intense. He stillgets fleeting episodes of left arm pain, but the worst is the pain in the posterior cervical spine into the left trapezius. He says that his preoperative numbness and tingling in the left upper extremity has resolved. He denies any fevers shakes or chills. He denies any weakness. He is having a hard time sleeping at night secondary to the pain. Any position seems to flare his symptoms. I have asked him to come in for an evaluation and he agreed. We will likely try to obtain an MRI of the cervical spine after his visit. * Telephone Encounter - Lisa Prince - 02/09/2021 3:28 PM EST Patient would like a call back, notes some improvement while on steroids but not complete. documented in this encounter Plan of Treatment Not on file documented as of this encounter Visit Diagnoses Not on filedocumented in this encounter Care Teams Hydroelectric Production Technician Relationship Specialty Start Date End Date Alon Sharma MD PCP - General 11/22/08 04/09/21 John Paul Rdz MD [address] [place] [address] PCP - General Internal Medicine 04/10/21 documented as of this encounter
--- OUTSIDE RECORDS SUMMARY | 2024-03-08 13:28 | XMS_ITS | Encounter Summary ---
Author Organization [facility] Address [address] [place] [address] Care Team Providers Care Assessment Technician Name Role Phone Alon Sharma MD Primary Care Provider Unavail able John Paul Rdz MD Primary Care Provider [phone] Reason for Visit * Reason Onset Date Comments gout 02/14/2012 Encounter Details Date Type Department Care Team Description 02/14/2012 Pt. Non Urgent Medical Question Medicine/Pediatrics - [address] [address] Alon Sharma MD Social History Tobacco Use [...] of this encounter Progress Notes * Astrid WilliamsonPPremNPrem - 02/14/2012 7:46 AM ESTFrom: KOLBY THOMAS To: Alon Sharma MD Sent: TueFeb 14, 2012 5:56 AM Subject: Gout Hi Dr. Sharma. My esqueda with gout seems to continue. I went to bed last night with a painful left big toe which left me hobbling. This morning, I cannot get my left shoe on because of the intense pain/swelling. I took 600mg of Ibuprofen which seemed to do little in addition to the last of the sulinac. This is the third such incident, though more severe, over the last 2 months or so. The good news is that the pain and swelling of my left foot/ankle/knee have behaved well. documented in this encounter Plan of Treatment Not on file documented as of this encounter Visit Diagnoses Not on filedocumented in this encounter Care Teams Assessment Technician Relationship Specialty Start Date End Date Alon Sharma MD PCP - General 11/22/08 04/09/21 John Paul Rdz MD [address] [place] [address] PCP - General Internal Medicine 04/10/21 documented as of this encounter
--- OUTSIDE RECORDS SUMMARY | 2024-03-08 13:28 | XMS_ITS | Continuity of Care Document ---
Author Organization [facility] Primary [facility] [place] Address [address] [place] [address]- Care Team Providers Care Crm Coordinator Name Role Phone Destiny COMPENSATION ADMINISTRATORAlcides Primary Care Physician Encounter [facility] Date(s): 01/13/24 - 02/12/24 [facility] [place] [address] [place], [place] [address] Encounter Type: Triage Allergies, Adverse [...] Refills, Maintenance, 10/27/23 4:39:00 PM EDT, Tablet, [facility]/pharmacy #[id number], Partial fill upon patient request [...] PCO Associate Professional Member Role: PCP Address: [address] [place] [address] [place] [address]- Telecom: Care Team Related Persons Name: YOLANDA THOMAS Insurance Providers Guarantor name: YEISON [facility] Plan Information #: 1 Payer: [employer] Member Number: NA Policy Number: NA Group Number: NA
--- OUTSIDE RECORDS SUMMARY | 2024-03-08 13:28 | XMS_ITS | Encounter Summary ---
Author Organization [facility] Address [address] [place] [address] Care Team Providers Care Surfboard Designer Name Role Phone Alon Sharma MD Primary Care Provider Unavail able John Paul Rdz MD Primary Care Provider [phone] Reason for Visit * Reason Onset Date Comments REFERRAL 07/24/2020 Encounter Details Date Type Department Care Team Description 07/24/2020 Pt. Non Urgent Medical Question Medicine/Pediatrics - [address] [address] Alon Sharma MD Social History Tobacco Use [...] encounter Miscellaneous Notes * Telephone Encounter - Kiara Ni M.A. - 07/25/2020 9:16 AM EDTFrom: Kolby Tolliver To: Luis Sharma Sent: 07/24/2020 9:55 PM EDT Subject: Neuro referral I saw Dr. Hodges at Ortho and he cannot assist with my shoulder/left arm pain/weakness. He states I need to get back to neuro. Can you set me up with neuro? I cannot wait too long to fix what is worsening at a decent pace. Not only is the pain and weakness not subsiding, but i have been getting headaches and my arm tingles with pins & n eedles often as well. Please help. documented in this encounter Plan of Treatment Not on file documented as of this encounter Visit Diagnoses Not on filedocumented in this encounter Care Teams Surfboard Designer Relationship Specialty Start Date End Date Alon Sharma MD PCP - General 11/22/08 04/09/21 John Paul Rdz MD [address] [place] [id number] PCP - General Internal Medicine 04/10/21 documented as of this encounter
== END ==
LOC: HO.SL 10:10
PROVIDERS: PCP Nurse Practitioner Family; Visit Provider Nurse Practitioner Family
DX: G47.26 Circadian rhythm sleep disorder, shift work type (principal); G47.9 Sleep disorder, unspecified; R53.83 Other fatigue; R06.83 Snoring
CPT/HCPCS: 95806

== ENCOUNTER 2024-07-27 08:17 | Outpatient (AMB) | payer BC, SELFPAY ==
--- OUTSIDE RECORDS SUMMARY | 2024-07-27 08:22 | XMS_ITS | Clinical Summary ---
Author Organization [facility] it Address [address] [place] [address] Care Team Providers Care Cad Designer Drafter Name Role Phone John Paul Rdz MD Primary Care Provider [phone] Medications allopurinoL (ZYLOPRIM) 300 mg tabletIndication s:Chronic gout, unspecified, without tophus (tophi) TAKE 1 TABLET BY MOUTH EVERY DAY 90 tablet 02/14/2024 Active allopurinoL (ZYLOPRIM) 300 mg tablet Take 1 tablet (300 mg total) by mouth 1 (one) time each day. 11/17/2023 Active amLODIPine (NORVASC) 5 mg tablet Take 1 tablet (5 mg total) by mouth 1 (one) time each day. Active Surgical History Surgery Date Site/Laterality Comments TONSILLECTOMY [...] Father susie y in life; age 57 [place], had CABG few yrs prior Hypertension Father [...] Recorded Sex Assigned at Not on file Legal Sex Male 10:46 AM EST Gender Identity Not on file Sexual Orientation [...] of Health Screening 01/05/2022 COVID-19 Vaccine ( - season) 2023 04/13/2020, 03/15/2020 Influenza Vaccine (Season Ended) 2024 11/19/2022, 10/31/2020, 10/12/2019, Additional history exists DTaP,Tdap,and Td [...] patient's age to complete this topic Meningococcal B Vaccine Aged Out No l onger eligible based on patient's age to complete [...] age to complete this topic Care Teams Cad Designer Drafter Relationship Specialty Start Date End Date John Paul Rdz MD PCP - General Internal Medicine 04/10/21
[2024-07-27 08:30] VITALS: BP 122/78; PULSE 78; O2SAT 97; BMI 28.3
--- NOTE | 2024-07-27 08:30 | A.OFFVIS_ITS ---
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 Required: No Accompanied by: Son Allergies No Known Allergies Allergy (Verified 07/27/24 08:37) Medication List - Last Reconciled 07/27/24 by MARY Cabezas allopurinol 300 mg PO DAILY amlodipine 5 mg PO DAILY magnesium oxide 400 mg PO BEDTIME 30 days meloxicam 15 mg PO DAILY nortriptyline 10 mg PO BEDTIME 30 days omeprazole 20 mg PO DAILY riboflavin (vitamin B2) 400 mg PO DAILY 30 days sumatriptan succinate 50 - 100 mg orally at onset of headache, may repeat in 2 hrs PRN; max 2 tabs per day or 4 tabs/week (may take with Tylenol) 30 days sumatriptan succinate 6 mg (0.5 mL) subcut ONCE PRN 30 days MDD 12 HPI Comments Details: Right handed 47-yr-old male presents for follow-up of migraine and sleep difficulties. Patient denies any significant interval medical changes. Pt reports his migraine attacks are stable, typically 1-2 times per week. He did start nortriptyline, notes it has been helpful for his left neuralgic type pain. He has not noticed an increase in his restless leg since starting the nortriptyline. Patient reports that the sumatriptan 6 mg injectable has been very effective for the more severe nocturnal migraine attacks, now if he takes the sumatriptan injection at onset, he is not debilitated for the entire day. He also continues on Sumatriptan tab- is well-tolerated well. HST was normal w/ AHI 2/hr w/ average SpO2 95%. He does continue to have fragmented sleep. He does have a history of restless legs, but does sleep better with a weighted blanket. However, he is not sure he can continue to use a weighted blanket during the summer. 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 He did review the patient education shift work sleep disorder website, and has tried to adopt some other strategies. He does wear sunglasses upon exiting work, sometimes uses NyQuil during the daytime sleep, has light blocking window coverings. He has not tried melatonin. In the past, he had tried gabapentin for cervical radiculopathy- unclear of effect and restless leg symptoms. Of note, his children also have restless leg symptoms. Baseline migraine headache characteristics: Prodrome symptoms: None Aura: Unsure Pain intensity: Starts mild then becomes severe Location, quality, characteristics: Usually Right temporal, or occipital, as headache peaks becomes holocranial throbbing pain. Associated symptoms? Blurry vision, halos, photophobia, phonophobia, at times osmophobia, nausea, rarely vomiting, dizziness, yawning, difficulty concentrating, inactivity intolerance. Postdrome: Dulls out Triggers: Unaware of any specific triggers Time of day: No specific time of day PFSH Surgical History H/O cervical spine surgery Hx laparoscopic cholecystectomy Family History Father HTN (hypertension) Mother HTN (hypertension) Sister HTN (hypertension) Social History Alcohol intake: never Patient Tobacco Use Status: Never used Tobacco Physical Exam Vital Signs: Last Vital Signs Pulse 78 07/27/24 08:30 BP 122/78 07/27/24 08:30 Pulse Ox 97 07/27/24 08:30 Oxygen Delivery Method Room Air 07/27/24 08:30 BMI result Body Mass Index 28.3 Const Orientation/consciousness: patient oriented x3 HEENT Head: Yes normocephalic Resp Effort & Inspection: normal respiratory effort and able to speak in complete sentences Neuro General: patient oriented x3 Cranial nerves: Yes CN's II-XII intact bilaterally Cognition (Neuro): normal cognition Gait exam (Neuro): Normal gait present Motor exam (neuro): 5/5 motor strength present throughout Psych Appearance: grossly normal Mental Status: mental status grossly normal Speech and movement: Normal speech and movement present Affect: normal affect Assessment & Plan Assessment & Plan (1) Migraine without aura: Code(s): G43.009 - Migraine without aura, not intractable, without status migrainosus Category: Medical Qualifiers: Status migrainosus presence: without status migrainosus Intractability: not intractable Qualified Code(s): G43.009 - Migraine without aura, not intractable, without status migrainosus (2) Snoring: Code(s): R06.83 - Snoring Category: Medical (3) Fatigue: Code(s): R53.83 - Other fatigue Category: Medical Qualifiers: Fatigue type: other Qualified Code(s): R53.83 - Other fatigue (4) Sleep difficulties: Code(s): G47.9 - Sleep disorder, unspecified Category: Medical (5) 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 Discussed having patient undergo in-lab PSG to further assess for sleep apnea or assess for periodic limb movements of sleep, as patient has symptoms of restless leg. However, patient request to hold on this until after his children are back in school in the fall. Continue to use weighted blanket- consider using a cooling weighted blanket in the summer weather Continue to use had an glasses upon exiting work in the morning. Try to maintain a consistent sleep schedule as able. Consider trialing low-dose melatonin prior to daytime sleep. For overall headache management: Optimize good self-care, including but not limited to maintaining a healthy diet, adequate fluid intake, adequate sleep, and engaging in regular physical activity. For headache triggers: Track headaches, especially after any treatment regimen changes. Migraine [employer] is one of many headache tracking apps. For light sensitivity tips: Patient may try blue light filtering glasses, green glasses, green light therapy. For acute headache treatment: Discussed importance of taking acute medications at the first sign of headache, however stressed importance of avoiding acute medication overuse (especially with combined headache medications). Continue Sumatriptan 100mg tab, 1/2 - 1 tab (50-100mg) at onset of headache, may repeat in 2 hours. Max of 2 tabs (200mg) per 24 hours. May adjunct with OTC Tylenol 650-1000mg q 4-6 hours prn. Continue sumatriptan 6 mg subQ injection at onset of severe wakening migraine a/w nausea, may repeat x1 after 1 hour. Max 12 mg per day. Reviewed patient may have quicker and better onset of action with subcu injectable form of sumatriptan, however he may feel side effects more prominently. Patient to notify us with any untoward effects. Previous acute migraine medication trials: None Acute migraine medication contraindications: None at this time For headache prevention medication: Preventative medications should be taken routinely as prescribed for best effect, it may take several weeks for full effect to take effect. Continue Riboflavin 400mg qam Continue Magnesium 400mg qhs Continue nortriptyline 10 mg at bedtime (opted for nortriptyline versus amitriptyline, as nortriptyline has less sedating effect, as patient has fragmented sleep schedule due to overnight shift work). Previous migraine prevention medication trials: None Migraine prevention medication contraindications: Topiramate due to age/0 kidney stones. Future considerations: non-pharmacological interventions, such as Cefaly, Nerivio, or GammaCore neuromodulation devices- these could be requested through [facility] Follow-up in clinic in 6 months or sooner prn. Coding Level of Care Code Est Pt Level 4 (93128) Diagnoses Migraine without aura and without status migrainosus, not intractable G43.009 Status migrainosus presence: without status migrainosus Intractability: not intractable Snoring R06.83 Other fatigue R53.83 Fatigue type: other Sleep difficulties G47.9 Shift work sleep disorder G47.26
== END 2024-07-27 09:20 | disposition home or self-care (01) ==
LOC: HO.HSMS 08:17
PROVIDERS: PCP Internal Medicine; Visit Provider Nurse Practitioner Family
DX: G43.009 Migraine without aura, not intractable, without status migrainosus (principal); R06.83 Snoring; R53.83 Other fatigue; G47.9 Sleep disorder, unspecified; G47.26 Circadian rhythm sleep disorder, shift work type
CPT/HCPCS: 99214

== ENCOUNTER → 2024-07-27 08:17 | Outpatient (BNVA) | payer BC, SELFPAY | PROVIDERS: PCP Internal Medicine; Visit Provider Nurse Practitioner Family ==

== ENCOUNTER → 2025-01-10 20:30 | Outpatient (REF) | payer BC, SELFPAY ==
--- OUTSIDE RECORDS SUMMARY | 2025-01-10 22:28 | XMS_ITS | Clinical Summary ---
Author Organization [facility] Prior to 07/07/[address] [place] [id number] Care Team Providers Care Packaging Sales Name Role Phone Alon Sharma MD Primary Care Provider [phone] Social History Tobacco Use Types Packs/Day Years [...] Screening (Colonoscopy) 2022 COVID-19 Vaccine ( season) 2024 04/13/2020, 03/15/2020 Influenza Vaccine (#1) 2024 0, 11/11/2017, 12/17/2015, Additional history exists Pneumococcal Vaccine Aged Out No long er eligible based on patient's age to complete this topic RSV Ped < 20 months Aged Out No longe r eligible based on patient's age to complete this topic Care Teams Packaging Sales Relationship Specialty Start Date End Date Alon Sharma MD [address] [place] [id number] PCP - General Internal Medicine 12/05/19
== END ==
LOC: HO.SL 20:30
PROVIDERS: PCP Internal Medicine; Visit Provider Nurse Practitioner Family
DX: R06.83 Snoring (principal); G47.9 Sleep disorder, unspecified; G47.26 Circadian rhythm sleep disorder, shift work type; G25.81 Restless legs syndrome
CPT/HCPCS: 95810

== ENCOUNTER → 2025-01-10 20:58 | Outpatient (BNV) | payer BC, SELFPAY | PROVIDERS: PCP Internal Medicine; Visit Provider Psychiatry & Neurology Neurology | DX: G47.9 Sleep disorder, unspecified (principal) | CPT/HCPCS: 95810 ==